=== PATIENT | female | born 1995 | race Caucasian/White ===

== ENCOUNTER → 2016-07-24 | Outpatient (CLI) | payer OTHER ==
[~2016-07-24] MED LIST: PRENTAB52 PO
[2016-07-24 21:07] LABS: BASO % 0.5 % (0.0-1.0); EOS # 0.1 K/mm3 (0.0-0.50); EOS % 1.4 % (0.0-3.0); LARGE UNSTAINED CELL # 0.1 K/mm3 (0.0-0.4); LARGE UNSTAINED CELL % 1.9 % (0.0-4.0); LYMPH # 1.2 K/mm3 (1.5-6.5); LYMPH % 21.1 % (24.0-44.0); MEAN CORPUSCULAR HGB CONC 33.5 g/dl (32.0-36.5); MEAN CORPUSCULAR VOLUME 86.5 fl (80.0-96.0); MONO # 0.3 K/mm3 (0.0-0.8); MONO % 5.9 % (0.0-5.0); NEUTROPHILS % 69.2 % (36.0-66.0); PLATELET COUNT, AUTOMATED 232 k/mm3 (150-450); RED CELL DISTRIBUTION WIDTH 12.2 % (11.5-14.5); WHITE BLOOD COUNT 5.8 K/mm3 (4.0-10.0)
[2016-07-27 10:30] LABS: HBsAg Prenatal NEGATIVE (NEGATIVE)
[2016-07-27 14:26] LABS: CONTROL LINE INT CTR LINE PRESENT; HIV SCRN NEGATIVE (NEGATIVE); HIV SCRN1 NEGATIVE (NEGATIVE)
== END ==
LOC: M LRY 17:13
PROVIDERS: ATTEND Obstetrics & Gynecology
DX: Z34.81 Encounter for supervision of other normal pregnancy, first trimester (principal)

== ENCOUNTER 2016-07-25 15:54 | Emergency (ER) | payer OTHER ==
[~2016-07-25] VITALS: Ht 170.2 cm; Wt 53.1 kg
[2016-07-25] MEDS ORDERED: PRENTAB52 PO (16:11)
[2016-07-25 17:14] LABS: MEAN CORPUSCULAR HEMOGLOBIN 29.3 pg (27.0-33.0); MEAN CORPUSCULAR HGB CONC 33.8 g/dl (32.0-36.5); MEAN CORPUSCULAR VOLUME 86.5 fl (80.0-96.0); RED CELL DISTRIBUTION WIDTH 12.4 % (11.5-14.5); WHITE BLOOD COUNT 6.2 K/mm3 (4.0-10.0)
[2016-07-25 19:05] VITALS: BP 108/63
--- NOTE | 2016-07-26 08:53 | REP ---
Obstetric sonography: History: Vaginal bleeding. Findings: Transabdominal and transvaginal scanning are performed. An intrauterine gestational sac is seen containing a yolk sac and an embryonic pole. The embryonic pole measures 2 mm in crown-rump length. This corresponds with a 5 week 5 day gestational age estimate. heart rate is recorded at 97 beats per minute. No subchorionic hemorrhage is seen. There is a 1.1 cm cyst in the maternal right ovary. Impression: Viable single intrauterine gestation at 5 weeks 5 days by crown-rump length. heart rate 97 beats per minute. EVIE by sonography March 22, 2017. Signed by Octaviano Villalba MD 07/26/2016 09:54 A
== END 2016-07-25 19:15 | disposition home or self-care (01) ==
LOC: M ED 18:06
DX: O20.0 Threatened abortion (principal); Z3A.01 Less than 8 weeks gestation of pregnancy

== ENCOUNTER → 2016-07-27 | Outpatient (CLI) | payer OTHER | LOC: M WUC 16:54 | PROVIDERS: ATTEND Advanced Practice Midwife | DX: O20.0 Threatened abortion (principal) ==

== ENCOUNTER → 2017-12-01 | Outpatient (CLI) | payer OTHER ==
[2017-12-01 18:50] LABS: BASO % 0.2 % (0.0-1.0); EOS % 0.4 % (0.0-3.0); HEMATOCRIT 38.1 % (36.0-47.0); HEMOGLOBIN 12.8 g/dl (12.0-15.5); IMMATURE GRANULOCYTE % 0.2 % (0-3.0); LYMPH # 1.5 10^3/uL (1.5-6.5); LYMPH % 17.3 % (24.0-44.0); MEAN CORPUSCULAR HGB CONC 33.6 g/dl (32.0-36.5); MEAN CORPUSCULAR VOLUME 86.2 fl (80.0-96.0); MONO # 0.6 10^3/uL (0.0-0.8); MONO % 6.8 % (0.0-5.0); NEUTROPHILS # 6.4 10^3/uL (1.8-7.7); NEUTROPHILS % 75.1 % (36.0-66.0); PLATELET COUNT, AUTOMATED 259 10^3/uL (150-450); RED BLOOD COUNT 4.42 10^6/uL (4.00-5.40); WHITE BLOOD COUNT 8.5 10^3/uL (4.0-10.0)
[2017-12-03 09:59] LABS: RUBELLA IgG QUALITATIVE IMMUNE (IMMUNE)
[2017-12-03 10:13] LABS: HBsAg Prenatal NEGATIVE (NEGATIVE)
[2017-12-03 10:29] LABS: HEPATITIS C VIRUS ABY INDEX 0.3 INDEX (<0.8)
[2017-12-03 10:29] LABS: HIV 1&2 SCREEN CENTAUR NEGATIVE (NEGATIVE)
== END ==
LOC: M SMT 15:23
DX: Z34.81 Encounter for supervision of other normal pregnancy, first trimester (principal); Z3A.10 10 weeks gestation of pregnancy
CPT/HCPCS: 86762

== ENCOUNTER → 2017-12-29 | Outpatient (REF) | payer OTHER ==
[2017-12-29 16:39] LABS: CHLAMYDIA DNA AMPLIFICATION NEGATIVE (NEGATIVE); GC DNA AMPLIFICATION NEGATIVE (NEGATIVE)
== END ==
LOC: M LAB REF 13:54
DX: Z34.82 Encounter for supervision of other normal pregnancy, second trimester (principal)

== ENCOUNTER → 2018-02-03 | Outpatient (CLI) | payer OTHER | LOC: M RAD 11:36 | DX: Z34.82 Encounter for supervision of other normal pregnancy, second trimester (principal); Z36.89 Encounter for other specified antenatal screening; Z3A.19 19 weeks gestation of pregnancy ==

== ENCOUNTER → 2018-03-14 | Outpatient (CLI) | payer OTHER ==
[2018-03-14 16:05] LABS: HEMOGLOBIN 12.2 g/dl (12.0-15.5); MEAN CORPUSCULAR HEMOGLOBIN 30.1 pg (27.0-33.0); MEAN CORPUSCULAR HGB CONC 33.9 g/dl (32.0-36.5); MEAN CORPUSCULAR VOLUME 88.9 fl (80.0-96.0); PLATELET COUNT, AUTOMATED 215 10^3/uL (150-450); RED BLOOD COUNT 4.05 10^6/uL (4.00-5.40); RED CELL DISTRIBUTION WIDTH 13.9 % (11.5-14.5); WHITE BLOOD COUNT 10.4 10^3/uL (4.0-10.0)
[2018-03-14 16:23] LABS: GLUCOSE CHALLENGE TEST 1 HOUR 103 MG/DL (LESS THAN 140)
== END ==
LOC: M RAD 14:04
DX: Z34.02 Encounter for supervision of normal first pregnancy, second trimester (principal); Z36.89 Encounter for other specified antenatal screening; Z3A.24 24 weeks gestation of pregnancy
CPT/HCPCS: 76816

== ENCOUNTER → 2018-05-31 | Outpatient (REF) | payer OTHER | LOC: M LAB REF 13:00 | PROVIDERS: ATTEND Advanced Practice Midwife | DX: Z34.83 Encounter for supervision of other normal pregnancy, third trimester (principal) ==

== ENCOUNTER 2018-06-22 14:34 | Inpatient (IN) | payer OTHER ==
[~2018-06-22] VITALS: Ht 170.2 cm; Wt 76.4 kg
[2018-06-22] VITALS (34 sets, daily range): BP systolic 91–131; BP diastolic 51–76
[2018-06-22] MEDS ORDERED: PENICILLIN G POTASSIUM IV 5 MU in D5W MINI-BAG PLUS 100 ML IV STA (14:56)
--- NOTE | 2018-06-22 15:34 | HPE ---
DATE OF ADMISSION: 06/22/2018 She is a 23-year-old 3, para 1-0-1-1 at 39-1/7 weeks gestation with an estimated date of confinement (EDC) of 06/28/2018 based on last menstrual period and confirmed by first trimester ultrasound. She presents to labor and delivery today following a routine visit where she had a cervical examination. She had report of uncomfortable contractions starting almost within the hour after her examination. She has had two labor checks and has changed her cervix to 4 cm. Decision was made for labor admission due to group B Streptococcus (GBS) positive and the need for prophylactic antibiotics. She does report some bloody show. Denies leakage of fluid. The fetus has been active. She does report that contractions have continued and they do seem more uncomfortable. Her care was initiated at [facility] in the first trimester. course complicated by GBS positive status. OBSTETRICAL HISTORY: In 2015, spontaneous miscarriage. In March 2017, 41 week gestation, induction, vaginal delivery, 8-pound, 7-ounce female. OBSTETRIC LABORATORY DATA: A+, antibody screen negative, Rubella immune, VDRL nonreactive. Urine culture: No growth. Hepatitis B surface antigen negative, HIV negative. Hepatitis C antibody nonreactive. Gonorrhea and Chlamydia negative. She did decline genetic serum screening laboratories. Gestational diabetic screening normal at 103 and she is GBS positive. PAST MEDICAL HISTORY: Childhood varicella. SURGERIES: None. FAMILY HISTORY: Noncontributory. SOCIAL HISTORY: The patient is single. However, partner is at bedside and supportive. She is a nonsmoker. Denies alcohol and drug use and denies any history of sexually transmitted infections. Denies history of abuse, physical, sexual and emotional. ALLERGIES: No known drug allergies. CURRENT MEDICATIONS: vitamins. OBJECTIVE: Temperature 97.5, pulse 83, respirations 16, blood pressure 114/66. She is alert and oriented times three. She is mildly uncomfortable with her contractions. heart rate is 135 with moderate variability, positive accelerations, negative decelerations. Contractions about every three minutes. They palpate mild. Abdomen is gravid, cephalic presentation. Estimated weight 7-1/2 pounds. STERILE VAGINAL EXAMINATION: In the office, 4 cm dilated, 90% effaced, -2 station, normal show. ASSESSMENT: Inch uterine at 39-1/7 weeks. heart rate category 1. Latent labor. Group B Streptococcus (GBS) positive. PLAN: Admit the patient to labor and delivery. Out of bed ad teri. Clear liquid diet. Routine laboratories. Saline lock. Start antibiotics for group B Streptococcus (GBS) prophylaxis. The patient does desire an epidural when she is more uncomfortable with her labor. We will likely augment her labor with IV Pitocin or assisted rupture of membranes following completed GBS treatment. I do anticipate active labor and spontaneous vaginal delivery. MTDD
[2018-06-22] MEDS: LR 1,000 ML IV SCH ×2 (15:46→18:42)
[2018-06-22 16:36] LABS: HEMATOCRIT 35.5 % (36.0-47.0); HEMOGLOBIN 11.8 g/dl (12.0-15.5); MEAN CORPUSCULAR HEMOGLOBIN 30.3 pg (27.0-33.0); MEAN CORPUSCULAR HGB CONC 33.2 g/dl (32.0-36.5); PLATELET COUNT, AUTOMATED 172 10^3/uL (150-450); WHITE BLOOD COUNT 13.2 10^3/uL (4.0-10.0)
[2018-06-22] MEDS ORDERED: FENTANYL 2MCG/ML ROPIVACAINE 0.2% IN 0.9% NACL 100ML IVBAG As Ordered ONE (17:27)
[2018-06-22] MEDS ORDERED: diphenhydrAMINE INJ 50MG/ML VIAL (J1200) IV PRN (18:15)
[2018-06-22] MEDS ORDERED: EPIDURAL COMMENT XX SCH (18:15)
[2018-06-22] MEDS ORDERED: FENTANYL/ROPIVACAINE/NACL BAG 100 ML EPIDURAL SCH (18:15)
[2018-06-22] MEDS ORDERED: EPIDURAL/PCA KEYS XX PRN (18:15)
[2018-06-22] MEDS ORDERED: ePHEDrine SULFATE 25 MG/5 ML(5MG/ML) SYRINGE IV PRN (18:15)
[2018-06-22] MEDS ORDERED: REFRIGERATOR IV KEYS XX PRN (18:15)
[2018-06-22] MEDS ORDERED: LACTATED RINGER'S 1000 ML IV PRN (18:15)
[2018-06-22] MEDS ORDERED: NALOXONE INJ 0.4 MG/1 ML VIAL (J2310) IV PRN (18:15)
[2018-06-22] MEDS ORDERED: ONDANSETRON 4MG/2ML VIAL (J2405) IV PRN (18:15)
[2018-06-22] MEDS ORDERED: OXYTOCIN DRIP 30 UNITS in APPROPRIATE DILUENT 1 EA IV SCH (19:45)
[2018-06-22] MEDS: PENICILLIN G POTASSIUM IV 2.5 MU in APPROPRIATE DILUENT 1 EA IV SCH ×2 (19:47→23:51)
[2018-06-23] VITALS (11 sets, daily range): BP systolic 104–123; BP diastolic 55–72
[2018-06-23] MEDS ORDERED: OXYTOCIN DRIP 30 UNITS in APPROPRIATE DILUENT 1 EA IV SCH (00:52)
[2018-06-23] MEDS ORDERED: METHYLERGONOVINE MALEATE 0.2 MG TAB PO PRN (01:00)
[2018-06-23] MEDS ORDERED: RHOGAM 300 MCG (1500 IU) INJ (J2790) IM SCH (01:00)
[2018-06-23] MEDS ORDERED: DOCUSATE SODIUM 100 MG CAP PO PRN (01:00)
[2018-06-23] MEDS ORDERED: MEASLES,MUMPS,RUBELLA VACCINE INJ (MMR-II) (90707) SC SCH (01:00)
[2018-06-23] MEDS ORDERED: ANUSOL HC CREAM 30GM TOP PRN (01:00)
[2018-06-23] MEDS ORDERED: DIBUCAINE 1% OINTMENT 30GM TOP PRN (01:00)
[2018-06-23] MEDS: IBUPROFEN 800 MG TAB PO PRN ×2 (05:50→16:59)
--- NOTE | 2018-06-23 07:05 | DN ---
DATE: 06/22/2018 Diana is a 23-year-old, 3, para 2-0-1-2 now, who was admitted to labor and delivery in latent labor. IV Pitocin was utilized and active labor did ensue. She did use an epidural for her labor coping. She reached full dilation at 0007. She had assisted rupture of membranes for a moderate amount for clear odorless fluid at 0010. She pushed to a normal spontaneous vaginal delivery of a live female infant in occiput anterior (OA) position with restitution to left occiput transverse (LOT) position at 0016. There was no nuchal cord. The shoulders delivered spontaneously and the corpus immediately followed. The female was placed on the maternal abdomen crying and active. Her mouth and nares were bulb suctioned. The cord was clamped x2 and cut by the father of the baby under my direction. A spontaneous expulsion of an intact placenta with three-vessel cord by Best mechanism was at 0020. Uterine hemostasis achieved with IV Pitocin rapid infusion and uterine fundal massage. Estimated blood loss 300 mL. Perineum and vagina inspected and noted to have a perineal abrasion. The abrasion was repaired with three interrupted sutures under epidural anesthesia. The female weighed 8 pounds 14 ounces, 4030 grams, 8 and 9. Mom is going to breastfeed and the family have named their daughter Fiordaliza. At the close of delivery, needle counts, lap counts and instrument counts were correct and verified.
[2018-06-23] MEDS: PRENATAL VITAMINS CHEWABLE TABLET PO SCH (08:43)
[2018-06-23] MEDS: ACETAMINOPHEN 500 MG TAB PO PRN ×2 (08:44→19:57)
[2018-06-24 06:24] VITALS: BP 110/68
--- NOTE | 2018-06-24 07:01 | NUR ---
Day 1 Status post , uncomplicated Subjective Pain is well controlled. Lochia decreasing and minimal. Voiding spontaneously. Tolerating a regular diet. Ambulating without any assistance. Denies any subjective fever/chills/nausea/vomiting/headache/visual changes/shortness of breath/chest pain. Objective Vitals: Normotensive, normal heart rate, afebrile, adequate urine output. Heart: regular, rate, and rhythm. no murmurs/gallops/rubs Lungs: clear to auscultation bilaterally, no wheezes/crackles/rales/ronchi Abd: soft, nontender, nondistended, uterine fundus is 2cm below umbilicus and firm Ext: no significant edema, nontender, negative Salma's bilaterally. Assessment/Plan: day 1. Recovering well. Hemodynamically stable, afebrile, good pain control. -Routine care -Discharge to home later today. -Routine infectious, fever, pain, and bleeding precautions reviewed Mathew Smiley.Awais., F.A.C.O.G.
[2018-06-24] MEDS ORDERED: ADACEL/BOOSTRIX VACCINE (DIPHTH/PERTUSS/ACELL/TETANUS)0.5ML SYR (90715) IM ONE (09:00)
[2018-06-24] MEDS ORDERED: INFLUENZA QUADRIVALENT PF VACCINE 0.5ML SYRINGE (90686) IM ONE (09:00)
[2018-06-24] MEDS: PRENATAL VITAMINS CHEWABLE TABLET PO SCH (09:17)
[2018-06-24] MEDS ORDERED: PRENTAB9 PO (09:37)
[2018-06-24] MEDS ORDERED: MAPA500T2 PO (09:43)
[2018-06-24] MEDS ORDERED: IBUP-1114 PO (09:43)
== END 2018-06-24 16:10 | disposition home or self-care (01) | DRG 807 ==
LOC: M LDI 14:34 → M OBS 06-23 03:04
PROVIDERS: ADMIT Advanced Practice Midwife; ATTEND Advanced Practice Midwife
PROC: 10E0XZZ Delivery of Products of Conception, External Approach (ICD-10-PCS; principal; 2018-06-22)
PROC: 10907ZC Drainage of Amniotic Fluid, Therapeutic from Products of Conception, Via Natural or Artificial Opening (ICD-10-PCS; 2018-06-22)
DX: O99.824 Streptococcus B carrier state complicating childbirth (principal); Z37.0 Single live birth; Z3A.39 39 weeks gestation of pregnancy